=== PATIENT | female | born 1940 | race Caucasian/White ===

== ENCOUNTER 2017-02-02 11:47 | Emergency (ER) ==
[2017-02-02 11:55] VITALS: BP 106/60; TEMP 97.3; BMI 31.8
[2017-02-02 12:28] LABS: BASOPHILS % (AUTO) 0.4 % (0.0-3.0); EOSINOPHILS # (AUTO) 0.2 K/ul (0.0-0.7); EOSINOPHILS % (AUTO) 2.6 % (0.0-7.0); HEMATOCRIT 42.4 % (37.0-47.0); HEMOGLOBIN 13.9 g/dl (12.0-16.0); IMMATURE GRANULOCYTE % (AUTO) 0.4 % (0.0-5.0); LYMPHOCYTES # (AUTO) 1.2 K/uL (0.60-3.4); LYMPHOCYTES % (AUTO) 16.4 (10.0-50.0); MEAN CORPUSCULAR HEMOGLOBIN 30.5 pg (27.0-31.0); MEAN CORPUSCULAR HGB CONC 32.8 (31.8-35.4); MEAN CORPUSCULAR VOLUME 93.2 fl (81.0-99.0); MONOCYTES # (AUTO) 0.6 K/uL (0.4-2.0); MONOCYTES % (AUTO) 8.8 (0-10); NEUTROPHILS % (AUTO) 71.4; PLATELET COUNT 148 10^3/uL (140-440); RED BLOOD COUNT 4.55 10^6/ul (4.20-5.40); WHITE BLOOD COUNT 7.02 K/ul (4.6-10.2)
--- NOTE | 2017-02-02 12:46 | ED.PDOC ---
General ED Provider: Dr. STERLING MARTINEZ Chief Complaint: Weakness Stated Complaint: WEAKNESS/ NEAR SYNCOPE Time Seen by Physician: 11:49 (NEAR SYNCOPE WHILE HAVING A BOWEL MOVEMENT RAPID RECOVERY PRIOR TO PRESENATION) Mode of Arrival: Stretcher Information Source: Patient, EMT Exam Limitations: No limitations Primary Care Provider: BENJI LEIGH Nursing and Triage Documentation Reviewed and Agree: Yes Neurological Complaint Exam - Weakness Complaint/Exam Last Known Well: 1 HR AGO Onset: Gradual Duration: RESOLVED Symptoms Are: Resolved Episodes Lasting: Minutes Initial Severity: Mild Current Severity: Mild Character: Reports: Lightheaded, Weak, Dizzy Aggravating: Reports: None Alleviating: Reports: None Associated Signs and Symptoms: Reports: Nausea Related History: Similar episode Review of Systems - Review Of Systems Constitutional: Reports: Malaise, Weakness Eyes: Reports: No symptoms Ears, Nose, Mouth, Throat: Reports: No symptoms Respiratory: Reports: No symptoms Cardiac: Reports: No symptoms GI: Reports: No symptoms : Reports: No symptoms Musculoskeletal: Reports: No symptoms Skin: Reports: No symptoms Neurological: Reports: No symptoms Endocrine: Reports: No symptoms Hematologic/Lymphatic: Reports: No symptoms All Other Systems: Reviewed and Negative Past Medical History - Past Medical History Previously Healthy: Yes Endocrine: Reports: None Cardiovascular: Reports: Hypertension Respiratory: Reports: None Hematological: Reports: None Gastrointestinal: Reports: None Genitourinary: Reports: None Neuro/Psych: Reports: None Musculoskeletal: Reports: None Cancer: Reports: None Last Menstrual Period: menopause - Surgical History General Surgical History: Reports: None - Family History Family History: Reports: None - Social History Smoking Status: Current every day smoker, Light tobacco smoker Hx Substance Use: No Alcohol Screening: None Physical Exam - Physical Exam Appearance: Ill-appearing Ill-appearing: Mild Pain Distress: Mild Eyes: JEREMY, EOMI, Conjunctiva clear ENT: Ears normal, Nose normal, Oropharynx normal Respiratory: Airway patent, Breath sounds clear, Breath sounds equal, Respirations nonlabored Cardiovascular: RRR, Pulses normal, No rub, No murmur GI/: Soft, Nontender, No masses, Bowel sounds normal, No Organomegaly Musculoskeletal: Normal strength, ROM intact, No edema, No calf tenderness Skin: Warm, Dry, Normal color Neurological: Sensation intact, Motor intact, Reflexes intact, Cranial nerves intact, Alert, Oriented Psychiatric: Affect appropriate, Mood appropriate Critical Care Note - Critical Care Note Total Time (mins): 0 Course - Course Hematology/Chemistry: 02/02/17 12:22 Orders, Labs, Meds: Lab Review 02/02/17 12:22 WBC 7.02 RBC 4.55 Hgb 13.9 Hct 42.4 MCV 93.2 MCH 30.5 MCHC 32.8 RDW Coeff of Guilherme 11.8 Plt Count 148 Immature Gran % (Auto) 0.4 Neut % (Auto) 71.4 Lymph % (Auto) 16.4 [place] % (Auto) 8.8 Eos % (Auto) 2.6 Baso % (Auto) 0.4 Immature Gran # (Auto) 0.0 Neut # 5.0 Lymph # 1.2 [place] # 0.6 Eos # 0.2 Baso # 0.0 Orders Category Date Time Status EKG-(ED ONLY) Stat CARDIO 02/02/17 12:12 Ordered CBC W/ AUTO DIFF Stat LAB 02/02/17 12:11 Ordered COMPREHENSIVE METABOLIC PANEL Stat LAB 02/02/17 12:22 Received CREATINE KINASE Stat LAB 02/02/17 12:12 Ordered TROPONIN I Stat LAB 02/02/17 12:12 Ordered Vital Signs: Temp Pulse Resp BP Pulse Ox 02/02/17 11:47 97.3 F L 61 16 106/60 95 Departure - Departure Time of Disposition: 14:00 Disposition: HOME SELF-CARE Discharge Problem: Weakness generalized Instructions: Weakness (ED) Condition: Good Pt referred to PMD for follow-up: Yes Additional Instructions: Please call your Family Physician as soon as possible to schedule a follow-up appointment. Allergies/Adverse Reactions: Allergies latex Adverse Reaction (Verified 02/02/17 11:58) Home Medications: Ambulatory Orders Aspirin [Aspirin EC] 81 mg PO DAILYWM 09/19/14 Calcium Carbonate/Vitamin D3 [Calcium 600 + Vit D Caplet] 1 tab PO DAILY Duloxetine HCl [Cymbalta] 30 mg PO QAM 09/19/14 Duloxetine HCl [Cymbalta] 60 mg PO QAM 09/19/14 Lisinopril [Zestril] 2.5 mg PO DAILY 09/19/14 Metoprolol Succinate 12.5 mg PO BID 09/19/14 Niacin 250 mg PO DAILY 09/19/14 Simvastatin [Zocor] 40 mg PO BEDTIME 09/19/14 Vitamin B Complex & Vit C No.4 [Super B Complex] 150 mg PO DAILY 09/19/14 Vitamin E Acetate [Vitamin E] 400 unit PO DAILY 09/19/14
[2017-02-02 12:55] LABS: ALANINE AMINOTRANSFERASE 12 U/L (12-78); ALBUMIN 3.3 g/dL (3.4-5.0); ALKALINE PHOSPHATASE 72 U/L (53-141); ASPARTATE AMINO TRANSFERASE 16 U/L (15-37); BILIRUBIN,TOTAL 0.43 mg/dL (0.00-1.20); BLOOD UREA NITROGEN 12 mg/dL (7-18); BUN/CREATININE RATIO 9.09; CALCIUM 8.8 mg/dL (8.2-10.2); CARBON DIOXIDE 26 mmol/L (23-31); CHLORIDE 107 mmol/L (98-107); CREATINE KINASE 31 U/L; CREATININE 1.32 mg/dL (0.60-1.30); GLUCOSE 134 mg/dL (82-115); SODIUM 143 mmol/L (136-145); TOTAL PROTEIN 6.6 g/dL (5.8-8.1)
[2017-02-02] MEDS ORDERED: SODIUM CHLORIDE 1,000 ML IV STA (13:34)
== END 2017-02-02 13:36 | disposition home or self-care (01) ==
LOC: ED 11:47
DX: R53.1 Weakness (principal); R42 Dizziness and giddiness; I10 Essential (primary) hypertension; F17.210 Nicotine dependence, cigarettes, uncomplicated; Z79.899 Other long term (current) drug therapy; R55 Syncope and collapse; R10.9 Unspecified abdominal pain; E11.9 Type 2 diabetes mellitus without complications
CPT/HCPCS: 36415; 80053; 82550; 84484; 85025; 93005; 93010; 99283

== ENCOUNTER 2017-03-26 21:32 | Emergency (ER) ==
[2017-03-26 21:54] VITALS: BP 92/53; TEMP 95.1; BMI 32.3
[2017-03-26 21:56] LABS: BASOPHILS # (AUTO) 0.1 K/uL (0-0.2); BASOPHILS % (AUTO) 0.5 % (0.0-3.0); EOSINOPHILS # (AUTO) 0.2 K/ul (0.0-0.7); EOSINOPHILS % (AUTO) 0.9 % (0.0-7.0); HEMATOCRIT 57.2 % (37.0-47.0); HEMOGLOBIN 18.2 g/dl (12.0-16.0); IMMATURE GRANULOCYTE % (AUTO) 0.6 % (0.0-5.0); LYMPHOCYTES # (AUTO) 3.1 K/uL (0.60-3.4); LYMPHOCYTES % (AUTO) 16.5 (10.0-50.0); MEAN CORPUSCULAR HEMOGLOBIN 29.9 pg (27.0-31.0); MEAN CORPUSCULAR HGB CONC 31.8 (31.8-35.4); MEAN CORPUSCULAR VOLUME 94.1 fl (81.0-99.0); MONOCYTES # (AUTO) 0.6 K/uL (0.4-2.0); MONOCYTES % (AUTO) 3.1 (0-10); NEUTROPHILS # (AUTO) 14.7 K/ul (2.0-6.9); NEUTROPHILS % (AUTO) 78.4; PLATELET COUNT 249 10^3/uL (140-440); RED BLOOD COUNT 6.08 10^6/ul (4.20-5.40); WHITE BLOOD COUNT 18.68 K/ul (4.6-10.2)
[2017-03-26 22:02] LABS: ABG BASE EXCESS -15 (-2.0-2.0); ABG HCO3 13.8 (22.0-26.0); ABG PCO2 39.8 mmHg (35-45); ABG PH 7.148 (7.35-7.45); ABG TCO2 15 (22.0-28.0)
[2017-03-26 22:17] LABS: ALBUMIN 3.8 g/dL (3.4-5.0); ALBUMIN/GLOBULIN RATIO 0.93; ANION GAP 29.2; BILIRUBIN,TOTAL 0.72 mg/dL (0.00-1.20); BUN/CREATININE RATIO 5.66; CALCIUM 10.5 mg/dL (8.2-10.2); CREATININE 2.65 mg/dL (0.60-1.30); POTASSIUM 3.2 mmol/L (3.5-5.10); TOTAL PROTEIN 7.9 g/dL (5.8-8.1)
--- NOTE | 2017-03-26 22:22 | ED.PDOC ---
General ED Provider: Dr. JOSE LUIS CANTOR Chief Complaint: Abdominal Pain Stated Complaint: Patient is brought by family with complains of Abodominal pain. Noted to be severely cyanotic. Time Seen by Physician: 21:33 Mode of Arrival: Wheelchair Information Source: Patient Exam Limitations: No limitations Primary Care Provider: BENJI LEIGH Nursing and Triage Documentation Reviewed and Agree: Yes Review of Systems - Review Of Systems Constitutional: Reports: Malaise, Weakness, Loss of appetite Eyes: Reports: No symptoms Ears, Nose, Mouth, Throat: Denies: Ear pain, Ear discharge Respiratory: Reports: No symptoms GI: Reports: Abdominal pain, Constipated, Nausea, Poor appetite : Reports: No symptoms Musculoskeletal: Reports: No symptoms Skin: Reports: Cyanosis Neurological: Reports: Anxiety Endocrine: Reports: No symptoms Hematologic/Lymphatic: Reports: No symptoms All Other Systems: Reviewed and Negative Past Medical History - Past Medical History Previously Healthy: Yes Endocrine: Reports: Dyslipidemia Cardiovascular: Reports: CAD, Hypertension Respiratory: Reports: None Hematological: Reports: None Gastrointestinal: Reports: None Genitourinary: Reports: CKD Neuro/Psych: Reports: CVA, Depression Musculoskeletal: Reports: None Cancer: Reports: None Last Menstrual Period: UNKNOWN - Surgical History General Surgical History: Reports: Cholecystectomy, CABG, Other (bladder repair ) - Family History Family History: Reports: Unknown - Social History Smoking Status: Current every day smoker, Light tobacco smoker Hx Substance Use: No Alcohol Screening: None - Immunizations Tetanus Shot up to Date: (UNKNOWN) Physical Exam - Physical Exam Appearance: Ill-appearing Ill-appearing: Severe Pain Distress: Severe Eyes: JEREMY, EOMI, Conjunctiva clear Neck: Supple Respiratory: Airway patent, Breath sounds diminished Cardiovascular: RRR, Pulses normal, No rub, No murmur GI/: Tender Musculoskeletal: Normal strength, ROM intact, No edema, No calf tenderness Skin: Warm, Cyanotic Neurological: Sensation intact, Motor intact, Cranial nerves intact, Alert, Oriented Psychiatric: Anxious Re-Evaluation - Re-Evaluation Time of Re-Evaluation: 23:15 Status: Improved Vital Signs Stable: Yes (115/59 , sat 100% on room air, P 72) Appearance: NAD Lungs: Other (deminished) Physician Notification - Case Discussed Physician Notified: Dr Leahy Time of Notification: 22:00 (ok to tranfer to [facility]) Critical Care Note - Critical Care Note Total Time (mins): 55 Comments: CO monitor test was 88 after comparing with normal subject in the room who had 6. Course - Course Hematology/Chemistry: 03/26/17 21:53 03/26/17 21:53 Orders, Labs, Meds: Lab Review 03/26/17 03/26/17 03/26/17 21:50 21:53 21:53 WBC 18.68 H RBC 6.08 H Hgb 18.2 H Hct 57.2 H MCV 94.1 MCH 29.9 MCHC 31.8 RDW Coeff of Guilherme 12.3 Plt Count 249 Immature Gran % (Auto) 0.6 Neut % (Auto) 78.4 Lymph % (Auto) 16.5 [place] % (Auto) 3.1 Eos % (Auto) 0.9 Baso % (Auto) 0.5 Immature Gran # (Auto) 0.1 Neut # 14.7 H Lymph # 3.1 [place] # 0.6 Eos # 0.2 Baso # 0.1 D-Dimer (Manual) < 45.00 Puncture Site O2 Saturation ABG pH ABG pCO2 ABG pO2 ABG HCO3 ABG Total CO2 ABG Base Excess Ezio Test O2 Delivery Device Oxygen Liter Flow FiO2 % Sodium 142 Potassium 3.2 L Chloride 102 Carbon Dioxide 14 L Anion Gap 29.2 BUN 15 Creatinine 2.65 H Estimated GFR (MDRD) 18.00 BUN/Creatinine Ratio 5.66 Glucose 322 H Calcium 10.5 H Total Bilirubin 0.72 AST 21 ALT 13 Alkaline Phosphatase 97 Total Protein 7.9 Albumin 3.8 Globulin 4.1 Albumin/Globulin Ratio 0.93 Amylase 87 Lipase 54 Stl Occult Blood (IFOB) Stool Occult Blood #2 Stool Occult Blood #3 03/26/17 03/26/17 21:57 23:10 WBC RBC Hgb Hct MCV MCH MCHC RDW Coeff of Guilherme Plt Count Immature Gran % (Auto) Neut % (Auto) Lymph % (Auto) [place] % (Auto) Eos % (Auto) Baso % (Auto) Immature Gran # (Auto) Neut # Lymph # [place] # Eos # Baso # D-Dimer (Manual) Puncture Site Rr O2 Saturation 100.0 ABG pH 7.148 L* ABG pCO2 39.8 ABG pO2 429.0 H ABG HCO3 13.8 L ABG Total CO2 15 L ABG Base Excess -15 L Ezio Test + O2 Delivery Device Nrb Oxygen Liter Flow 15.00 FiO2 % 100.0 Sodium Potassium Chloride Carbon Dioxide Anion Gap BUN Creatinine Estimated GFR (MDRD) BUN/Creatinine Ratio Glucose Calcium Total Bilirubin AST ALT Alkaline Phosphatase Total Protein Albumin Globulin Albumin/Globulin Ratio Amylase Lipase Stl Occult Blood (IFOB) Negative Stool Occult Blood #2 No specimen received Stool Occult Blood #3 No specimen received Orders Category Date Time Status ABG DRAW REQUEST Stat CARDIO 03/26/17 21:57 Completed EKG-(ED ONLY) Stat CARDIO 03/26/17 23:00 Completed IV [ED IV/MEDIPORT/POWERPORT] .ONCE EMERGENCY 03/26/17 22:13 Active ABG Stat LAB 03/26/17 21:57 Completed AMYLASE Stat LAB 03/26/17 21:53 Completed CBC W/ AUTO DIFF Stat LAB 03/26/17 21:53 Completed COMPREHENSIVE METABOLIC PANEL Stat LAB 03/26/17 21:53 Completed D-DIMER Stat LAB 03/26/17 21:50 Completed LIPASE Stat LAB 03/26/17 21:53 Completed OCCULT BLOOD, STOOL Stat LAB 03/26/17 23:10 Completed 0.9 % Sodium Chloride [Saline Flush] MEDS 03/26/17 22:13 Discontinued 1 syr IVF PRN PRN Morphine Sulfate [Morphine 2 mg/ml Syringe] MEDS 03/26/17 22:52 Discontinued 2 mg IVP ONCE STA Ondansetron HCl/Pf [Zofran 4 mg/2 ml] MEDS 03/26/17 22:52 Discontinued 4 mg IVP ONCE STA Sodium Chloride 0.9% [Sodium Chloride] 1,000 ml MEDS 03/26/17 22:34 Discontinued IV BOLUS Sodium Chloride 0.9% [Sodium Chloride] 1,000 ml MEDS 03/26/17 22:[address] ABD/PEL WO RENAL STONE PROT Stat RADS 03/26/17 21:[address] CHEST W/O CONTRAST Stat RADS 03/26/17 21:52 Taken Medications Discontinued Medications Generic Name Dose Route Start Last Admin Trade Name Freq PRN Reason Stop Dose Admin Sodium Chloride 1,000 mls @ 2,000 mls/hr 03/26/17 22:34 03/26/17 21:45 Sodium Chloride IV 03/26/17 23:03 2,000 mls/hr BOLUS STA Administration Sodium Chloride 1,000 mls @ 1,000 mls/hr 03/26/17 22:53 03/26/17 22:15 Sodium Chloride IV 03/26/17 23:52 1,000 mls/hr BOLUS STA Administration Morphine Sulfate 2 mg 03/26/17 22:52 03/26/17 22:59 Morphine 2 Mg/Ml Syringe IVP 03/26/17 22:53 2 mg ONCE STA Administration Ondansetron HCl 4 mg 03/26/17 22:52 03/26/17 22:57 Zofran 4 Mg/2 Ml IVP 03/26/17 22:53 4 mg ONCE STA Administration Sodium Chloride 1 syr 03/26/17 22:13 03/26/17 23:03 Saline Flush IVF 1 syr PRN PRN Administration To flush IV Vital Signs: Temp Pulse Resp BP Pulse Ox 03/26/17 21:33 95.1 F L 79 28 H 92/53 L 57 L Departure - Departure Time of Disposition: 23:08 Disposition: TSF SHORT-TRM HOSP Discharge Problem: Abdominal pain, Fecal impaction, Polycythemia vera, acquired Carbon monoxide poisoning Qualifiers: Encounter type: initial encounter Injury intent: accidental or unintentional Qualified Code(s): T58.91XA - Toxic effect of carbon monoxide from unspecified source, accidental (unintentional), initial encounter Constipation Qualifiers: Constipation type: unspecified constipation type Qualified Code(s): K59.00 - Constipation, unspecified Acute renal failure Qualifiers: Acute renal failure type: unspecified Qualified Code(s): N17.9 - Acute kidney failure, unspecified Condition: Critical Pt referred to PMD for follow-up: Yes Allergies/Adverse Reactions: Allergies latex Adverse Reaction (Verified 03/26/17 21:54) Home Medications: Ambulatory Orders Aspirin [Aspirin EC] 81 mg PO DAILYWM 09/19/14 Calcium Carbonate/Vitamin D3 [Calcium 600 + Vit D Caplet] 1 tab PO DAILY Duloxetine HCl [Cymbalta] 30 mg PO QAM 09/19/14 Duloxetine HCl [Cymbalta] 60 mg PO QAM 09/19/14 Lisinopril [Zestril] 2.5 mg PO DAILY 09/19/14 Metoprolol Succinate 12.5 mg PO BID 09/19/14 Niacin 250 mg PO DAILY 09/19/14 Simvastatin [Zocor] 40 mg PO BEDTIME 09/19/14 Vitamin B Complex Vit C No.4 [Super B Complex] 150 mg PO DAILY 09/19/14 Vitamin E Acetate [Vitamin E] 400 unit PO DAILY 09/19/14
[2017-03-26] MEDS ORDERED: SODIUM CHLORIDE 1,000 ML IV STA ×2 (22:34→22:53)
[2017-03-26] MEDS ORDERED: VANCOMYCIN 1,000 MG in SODIUM CHLORIDE 200 ML IV STA (22:36)
[2017-03-26] MEDS ORDERED: ZOSYN 3.375 GM 3.375 GM in SODIUM CHLORIDE 50 ML IV STA (22:36)
--- NOTE | 2017-03-26 22:39 | CT ---
EXAM: CT of the chest, abdomen and pelvis without contrast. HISTORY: Abdominal pain. PROCEDURE: Contiguous axial CT images of the chest, abdomen and pelvis without contrast with coronal and sagittal reformats. COMPARISON: CT abdomen/pelvis 11/28/2009. FINDINGS: The heart is within normal limits in size. The thoracic aorta is within normal limits in d iameter. There are atherosclerotic calcifications in the thoracic aorta. There are coronary artery ca lcifications. There is a 0.5 cm nodule in the anterior left upper lobe. There is minimal lingular and right middle lobe subsegmental atelectasis. There are multiple sternotomy wires. There are degenera tive changes in the spine. The liver is normal in appearance. The gallbladder is surgically absent. The pancreas, spleen, adre nal glands and left kidney are normal in appearance. There are nonobstructive calcifications in the right kidney. There is a fluid density cyst in the right kidney. The abdominal aorta is within normal limits in diameter. The appendix is not visualized. There is a moderate amount of fluid in the stoma ch. There is fecal stasis in the colon. There is a moderate amount of fluid and air throughout the c olon which measures up to 6.9 cm in diameter. The mid sigmoid colon is decompressed. No free air in t he abdomen or pelvis. There is minimal free fluid in the cul-de-sac. The bladder is decompressed whi ch limits the evaluation. The uterus is unremarkable. There are degenerative changes in the spine. Impression: 5 mm nodule in the left lung/upper lobe. Recommend follow-up CT chest in 6 months to co nfirm stability. Minimal lingular and right middle lobe subsegmental atelectasis. Colonic ileus with fecal stasis as described. Minimal free fluid in the cul-de-sac. Nonobstructive right nephrolithiasis. Right renal cyst. Cholecystectomy.
[2017-03-26] MEDS ORDERED: MORPHINE 2 MG/ML SYRINGE IVP STA (22:52)
[2017-03-26] MEDS ORDERED: ZOFRAN 4 MG/2 ML IVP STA (22:52)
[2017-03-26 23:20] LABS: OCCULT BLOOD INTERNAL QC 1 INTERNAL QC VALID; OCCULT BLOOD INTERNAL QC 2 INTERNAL QC VALID; OCCULT BLOOD INTERNAL QC 3 INTERNAL QC VALID; OCCULT BLOOD SAMPLE 1 NEGATIVE (NEGATIVE); OCCULT BLOOD SAMPLE 2 NO SPECIMEN RECEIVED (NEGATIVE); OCCULT BLOOD SAMPLE 3 NO SPECIMEN RECEIVED (NEGATIVE)
== END 2017-03-26 23:25 | disposition short-term general hospital (02) ==
LOC: ED 21:32
DX: T58.91XA Toxic effect of carbon monoxide from unspecified source, accidental (unintentional), initial encounter (principal); K59.00 Constipation, unspecified; N17.9 Acute kidney failure, unspecified; I45.2 Bifascicular block; D45 Polycythemia vera; N20.0 Calculus of kidney; N18.9 Chronic kidney disease, unspecified; I25.810 Atherosclerosis of coronary artery bypass graft(s) without angina pectoris; I10 Essential (primary) hypertension; E78.5 Hyperlipidemia, unspecified; F17.210 Nicotine dependence, cigarettes, uncomplicated; Z79.899 Other long term (current) drug therapy; Z86.73 Personal history of transient ischemic attack (TIA), and cerebral infarction without residual deficits
CPT/HCPCS: 36415; 74176; 80053; 82150; 82272; 82803; 83690; 85025; 85379; 93005; 93010; 96361; 96374; 96375; 99285